=== PATIENT | male | born 2005 | race Caucasian/White ===

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

== ENCOUNTER 2024-04-15 23:10 | Emergency (ER) | payer OTHER, SELFPAY ==
--- NOTE | ~2024-04-15 | XR_ITS ---
CLINICAL HISTORY: cough, sob 1 view chest x-ray. Comparison: None Findings: No consolidation, pneumothorax, or effusion. The lungs are well inflated. Heart size normal. Impression: 1. No acute cardiopulmonary process. No focal pulmonary consolidation. This document has been electronically signed by: Dashawn Graham MD on 04/16/2024 00:10:32
[2024-04-15 23:14] VITALS: BP 134/68; PULSE 115; RESP 20; TEMP 36.9; O2SAT 98; BMI 18.1
[2024-04-15 23:38] LABS: MANUAL DIFF FLAG NO
--- NOTE | 2024-04-15 23:39 | PC.NURSE ---
Pt arrived reporting nausea and vomiting. Looks pale. Pt states left [facility] and came here. Pt arrived with a 20G IV line on the R ac. Pt states line placed by [facility]. IV line removed and dressing applied. Area intact with no redness or swelling. No sign of infection noted. 20G IV line established on the L AC.
[2024-04-15 23:41] LABS: Eosinophils Percent Auto 0.2 % (0-4); Hematocrit 38.7 % (42.0-52.0); Hemoglobin 14.5 g/dl (14.0-18.0); Imm Gran Abs Auto 0.01 X10*3/uL (0.00-0.03); Imm Gran Pct Auto 0.2 % (0.0-0.4); Lymphocytes Absolute Auto 0.9 X10*3/uL (1.2-4.9); Mean Corpuscular HGB Conc 37.5 g/dl (31.0-36.0); Mean Corpuscular Hemoglobin 31.6 pg (27.0-33.0); Mean Corpuscular Volume 84.3 fL (80.0-98.0); Mean Platelet Volume 10.3 fL (9.4-12.4); Monocytes Absolute Auto 0.3 X10*3/uL (0.1-1.2); Monocytes Percent Auto 6.3 % (2-11); Neutrophils Percent Auto 76.3 % (45-73); Platelet Count 206 X10*3/uL (160-400); Red Blood Count 4.59 X10*6/uL (4.60-5.80); Red Cell Distribution Width 11.6 % (11.0-16.0); White Blood Count 5.2 X10*3/uL (4.8-10.8)
[2024-04-15] MEDS: 0.9 % Sodium Chloride 1,000 ML 999 ML IV (23:45)
[2024-04-15] MEDS: Famotidine/PF 20 MG/2 ML VIAL IVPUSH (23:46)
[2024-04-15] MEDS: ondansetron HCL 4 MG/2 ML VIAL IVPUSH (23:46)
[2024-04-15] MEDS: Magnesium Hydrox/Alum Hydrox 30 ML ORAL.SUSP PO (23:46)
--- NOTE | 2024-04-15 23:47 | ED.GENADULT ---
HPI - General Adult General Chief complaint: General Medical Stated complaint: SOB, numb face, weak, vomiting Time Seen by Provider: 04/15/24 23:33 Source: patient and family (mother) Mode of arrival: ambulatory Limitations: no limitations History of Present Illness ED Provider: DR. Knott HPI narrative: 18-year-old male with no significant past medical history patient walked in with his mother for evaluation of nausea, vomiting for a week and a half, mother called EMS and patient was transported to [facility] patient opted to walk out of the waiting room with his established IV access and come to our hospital, complaining of persistent vomiting can not tolerate p.o. intake, denies recent alcohol use or smoking marijuana or taking any drugs, patient only complains of upper epigastric pain, history of appendectomy when with the child, no diarrhea last bowel movement was normal this morning. Related Data Previous Rx's ?Medication ?Instructions ?Recorded ondansetron 4 mg disintegrating 4 mg PO Q8-12H PRN nausea and 04/16/24 tablet vomiting #7 tabs Allergies Allergy/AdvReac Type Severity Reaction Status Date / Time No Known Allergies Allergy Verified 04/15/24 23:16 Review of Systems Review of Systems: All other systems are reviewed and are negative Constitutional: Reports as per HPI and Reports no additional constitutional complaints Eyes: Reports as per HPI and Reports no additional eye complaints Reports system reviewed and no additional complaints, except as documented Cardiovascular: Reports as per HPI and Reports no additional cardiovascular complaints Respiratory: Reports as per HPI and Reports no additional respiratory complaints Gastrointestinal: Reports as per HPI and Reports no additional gastrointestinal complaints Genitourinary: Reports no additional female genitourinary complaints Musculoskeletal: Reports no additional musculoskeletal complaints Skin/Breast: Reports system reviewed and no additional complaints, except as docu Psychiatric: Reports no additional psychiatric complaints Endocrine: Reports no additional endocrine complaints Hematologic/Lymphatic: Reports no additional hematologic/lymphatic complaints Allergic/Immunologic: Reports no additional allergic/immunologic complaints Reports system reviewed and no additional complaints, except as documented and Reports Abnormal speech present [facility] Social History Social History Advance Directives: No Advance Directives Information Provided: Yes Do you have a plan to hurt others: No Plan Physical Exam ED Vital Signs: Vital Signs - 24 hr 04/15/24 23:14 Temperature 98.5 F Pulse Rate 115 H Respiratory Rate 20 Blood Pressure 134/68 Pulse Oximetry 98 Oxygen Delivery Method Room Air BMI result Body Mass Index 18.1 Vital signs have been reviewed and appear to be correct. Blood pressure elevated. Heart rate normal. Respiratory rate normal. Temperature normal. Oxygen saturation normal. Appearance: Anxious, Alert. Oriented X3. No acute distress. Head: Normal external exam. Normocephalic. Atraumatic. No [place] signs noted. No raccoon eyes noted Eyes: PERRLA. EOMI. Conjunctiva and sclera normal. Eyelids normal. ENT: TM's Normal. Pharynx normal. Uvula midline. Moist mucous membranes. No trismus noted. No drooling noted. No muffled voice noted. Neck: Normal inspection. Neck supple. FROM. No adenopathy. Thyroid Normal. No meningeal signs. No neck mass noted. CVS: Normal heart rate and rhythm. Heart sound normal. No murmurs noted. Pulses normal throughout. Respiratory: No respiratory distress. Painless inspiration. Breath sounds normal. No wheezes/rales/rhonchi noted. Chest nontender. No accessory muscle usage noted or decreased air movement noted. Abdomen: Soft, epigastric tenderness, no guarding.Bowel sounds normal in all 4 quadrants. No distention noted. No organomegaly noted. No visible injury noted. Back: No CVA tenderness. Full range of motion noted. Skin: Skin warm and dry. Normal skin color. Normal skin turgor. No rashes/lesions/lacerations noted. Extremities: No lower extremity edema. Extremities exhibit normal range of motion. Extremities nontender. Neuro: Oriented X 3. Cranial nerve exam: II-XII are grossly intact No motor deficit. No sensory deficit. Reflexes normal. Course Reevaluation(s) Reevaluation #1: 18-year-old came for 10 days nausea vomiting, upper respiratory symptoms patient is positive for the flu a. over all feels better after IV hydration, and IV Toradol. Able to tolerate p.o. intake. Improvement of tachycardia after IV hydration. Time: 01:30 Medications Administered Generic Name Dose Route Start Last Admin Trade Name Freq PRN Reason Stop Dose Admin Sodium Chloride 1,000 mls @ 999 mls/hr 04/16/24 00:27 04/16/24 00:33 Ns IV 04/16/24 01:27 999 mls/hr .Q1H1M ONE Administration Discontinued Medications Generic Name Dose Route Start Last Admin Trade Name Marcianoq PRN Reason Stop Dose Admin Al Hydroxide/Mg Hydroxide 30 ml 04/15/24 23:42 04/15/24 23:46 Magnesium Hydrox/Alum Hydrox 30 Ml Oral.Susp PO 04/15/24 23:43 30 ml ONCE ONE Administration Famotidine 20 mg 04/15/24 23:42 04/15/24 23:46 Famotidine/Pf 20 Mg/2 Ml Vial IVPUSH 04/15/24 23:43 20 mg ONCE ONE Administration Sodium Chloride 1,000 mls @ 999 mls/hr 04/15/24 23:42 04/15/24 23:45 Ns IV 04/16/24 00:42 999 mls/hr .Q1H1M ONE Administration Ketorolac Tromethamine 15 mg 04/16/24 00:27 04/16/24 00:33 Ketorolac Tromethamine 15 Mg/Ml Vial IVPUSH 04/16/24 00:28 15 mg ONCE ONE Administration Lorazepam 0.5 mg 04/15/24 23:45 04/15/24 23:51 Lorazepam 2 Mg/Ml Vial IVPUSH 04/15/24 23:46 0.5 mg ONCE ONE Administration Ondansetron HCl 4 mg 04/15/24 23:42 04/15/24 23:46 Ondansetron Hcl 4 Mg/2 Ml Vial IVPUSH 04/15/24 23:43 4 mg ONCE ONE Administration Medical Decision Making Differential Diagnosis Differential Diagnoses: The differential diagnosis associated with the presentation includes ( Influenza a, RSV, COVID-19 infection, gastritis, drug use, alcohol use, electrolyte derangement, severe dehydration, severe anemia.) Admission/Observation Consideration of admission/observation: Escalation of care including admission/observation considered Lab Data MDM Lab Attestation statement: I reviewed the patient's lab results. 04/15/24 23:35 04/15/24 23:35 Labs: Lab Results 04/15/24 04/15/24 Range/Units 23:22 23:35 WBC 5.2 (4.8-10.8) X10*3/uL RBC 4.59 L (4.60-5.80) X10*6/uL Hgb 14.5 (14.0-18.0) g/dl Hct 38.7 L (42.0-52.0) % MCV 84.3 (80.0-98.0) fL MCH 31.6 (27.0-33.0) pg MCHC 37.5 H (31.0-36.0) g/dl RDW 11.6 (11.0-16.0) % Plt Count 206 (160-400) X10*3/uL MPV 10.3 (9.4-12.4) fL Immature Gran % (Auto) 0.2 (0.0-0.4) % Neut % (Auto) 76.3 H (45-73) % Lymph % (Auto) 17.0 L (20-40) % [place] % (Auto) 6.3 (2-11) % Eos % (Auto) 0.2 (0-4) % Baso % (Auto) 0.0 (0-2) % Lymph # (Auto) 0.9 L (1.2-4.9) X10*3/uL [place] # (Auto) 0.3 (0.1-1.2) X10*3/uL Eos # (Auto) 0.0 (0.0-0.4) X10*3/uL Baso # (Auto) 0.0 (0.0-0.2) X10*3/uL Abs Immat Gran (auto) 0.01 (0.00-0.03) X10*3/uL Absolute Neuts (auto) 4.0 (2.0-8.3) x10*3/uL Absolute Nucleated RBC 0.000 (0.0-0.012) X10*3/uL Nucleated RBC % (auto) 0.0 (0.0-0.2) /100WBC Sodium 140 (135-145) mmol/L Potassium 3.8 (3.3-5.1) mmol/L Chloride 103 (96-108) mmol/L Carbon Dioxide 21 L (22-29) mmol/L Anion Gap 20 (12-20) BUN 13 (9-16) mg/dL Creatinine 1.12 (0.5-1.4) mg/dL Estim Creat Clear Calc 88.4 Estimated GFR > 60 Random Glucose 131 H (60-115) mg/dL Calcium 9.3 (8.4-10.2) mg/dL Total Bilirubin 0.6 (0.0-1.0) mg/dL AST 38 H (5-37) U/L ALT 22 (0-40) U/L Alkaline Phosphatase 46 (39-117) U/L Total Protein 8.3 H (6.5-8.0) g/dL Albumin 4.8 (3.5-5.0) g/dL Influenza Type A (PCR) POSITIVE A (Negative) Influenza Type B (PCR) NEGATIVE (Negative) RSV RNA Qual (PCR) NEGATIVE (Negative) SARS-CoV-2 RNA (RT-PCR) NEGATIVE (Negative) Independent Interpretation I performed an independent interpretation of an: Plain X-Ray ( chest: No acute cardiopulmonary process) Discharge Plan Discharge Clinical Impression: Influenza A Patient Disposition: Still a Patient Instructions: Influenza (ED) Prescriptions: New ondansetron 4 mg tablet,disintegrating 4 mg PO Q8-12H PRN (Reason: nausea and vomiting) Qty: 7 0RF Referrals: Kei Hardy MD [Primary Care Provider] - Print Language: Senegalese
[2024-04-15] MEDS: LORazepam 2 MG/ML VIAL 0.5 MG IVPUSH (23:51)
--- OUTSIDE RECORDS SUMMARY | 2024-04-15 23:53 | XMS_ITS ---
Author Name [facility] Organization Unknown Problems Problem Status Onset Date Problem Type Date of Resoluti on Source Patellar tendonitis active 2022-08-06 ProblemAct [facility]
[2024-04-15 23:54] LABS: Alanine Aminotransferase 22 U/L (0-40); Albumin Level 4.8 g/dL (3.5-5.0); Alkaline Phosphatase 46 U/L (39-117); Anion Gap 20 (12-20); Aspartate Amino Transferase 38 U/L (5-37); Bilirubin Total 0.6 mg/dL (0.0-1.0); Blood Urea Nitrogen 13 mg/dL (9-16); Calcium 9.3 mg/dL (8.4-10.2); Carbon Dioxide 21 mmol/L (22-29); Chloride 103 mmol/L (96-108); Creatinine Clr Calc Pharmacy 88.4; Estimated Glomerular Filt Rate > 60; Glucose Random 131 mg/dL (60-115); Potassium 3.8 mmol/L (3.3-5.1); Sodium 140 mmol/L (135-145); Total Protein 8.3 g/dL (6.5-8.0)
[2024-04-16 00:09] LABS: Influenza A PCR POSITIVE (Negative); Influenza B PCR NEGATIVE (Negative); Resp Syncy Virus RNA Qual PCR NEGATIVE (Negative); SARS COV2 PCR INHOUSE NEGATIVE (Negative)
[2024-04-16] MEDS: Ketorolac Tromethamine 15 MG/ML VIAL IVPUSH (00:33)
[2024-04-16] MEDS: 0.9 % Sodium Chloride 1,000 ML 999 ML IV (00:33)
[2024-04-16 01:01] VITALS: BP 102/67; PULSE 89; RESP 18; O2SAT 95
[2024-04-16 01:19] VITALS: BP 102/67; PULSE 89; RESP 18; TEMP 36.9; O2SAT 95
== END 2024-04-16 01:19 | disposition still patient (30) ==
PROVIDERS: Emergency Provider Emergency Medicine; PCP Pediatrics
DX: J10.1 Influenza due to other identified influenza virus with other respiratory manifestations (principal); R06.02 Shortness of breath; R11.2 Nausea with vomiting, unspecified; R05.9 Cough, unspecified; Z03.818 Encounter for observation for suspected exposure to other biological agents ruled out; Z79.899 Other long term (current) drug therapy
CPT/HCPCS: 0241U; 71045; 80053; 85025; 96361; 96374; 96375; 99284; J1885; J2060; J2405

== ENCOUNTER → 2024-04-15 23:30 | Outpatient (BNV) | payer OTHER, SELFPAY | PROVIDERS: Emergency Provider Emergency Medicine; PCP Pediatrics; Visit Provider Radiology Diagnostic Radiology | DX: R05.9 Cough, unspecified (principal); R06.02 Shortness of breath | CPT/HCPCS: 71045 ==